=== PATIENT | male | born 1985 | race Caucasian/White ===

== ENCOUNTER 2016-10-21 22:12 | Emergency (ER) | payer OTHER ==
[2016-10-21 22:21] VITALS: TEMP 98.2
[2016-10-21] MEDS ORDERED: PANTOPRAZOLE 40 MG/10 ML VIAL IVP STA (23:18)
[2016-10-21] MEDS ORDERED: HYDROmorphone 1 MG/ML 1 ML SYRINGE IVP STA (23:18)
[2016-10-21] MEDS ORDERED: SODIUM CHLORIDE 0.9% 1,000 ML IV STA ×2 (23:18)
[2016-10-21] MEDS ORDERED: METOCLOPRAMIDE 5 MG/ML 2 ML VIAL IVP STA (23:18)
--- NOTE | 2016-10-21 23:24 | ED ---
General Adult HPI - General Chief complaint: Abdominal Pain Stated complaint: abdominal pain Time Seen by Provider: 10/21/16 23:02 Source: patient, family, RN notes reviewed Mode of arrival: ambulatory Limitations: no limitations - History of Present Illness Initial comments: Chief complaint history of present illness a 31-year-old male who reports an hour after eating a meal at a restaurant he started having loose stool. Ongoing for 3 days now. Epigastric discomfort that radiates through to the back. No vomiting but mild nausea. Reports the color of the loose stool is clear to brain colored. No blood noted. - Related Data Previous Rx's Medication Instructions Recorded Ciprofloxacin HCl [Cipro] 500 mg PO Q12HR #14 tablet 10/22/16 Allergies Allergy/AdvReac Type Severity Reaction Status Date / Time No Known Allergies Allergy Verified 10/21/16 22:59 Review of Systems ROS Statement: Those systems with pertinent positive or pertinent negative responses have been documented in the HPI. Review of systems. No visual acuity or headache no chest pain or shortness of breath. His discomfort is through the mid abdomen.. No extremity pain. No neuro deficits all systems are reviewed Past medical problems significant for testicular cancer 5 months ago he had an orchiectomy and short period radiation. He had CAT scan since then without any evidence of any metastatic lesions. The patient's surgeries include only that testicle. On the right side. Family history significant for mother with kidney cancer. Patient denies ALLERGIES nonsmoker drink alcohol heart the ground the weekends. A day or so prior to the problems starting with his stomach he did drink heavily with a friend ROS Other: All systems not noted in ROS Statement are negative. Past Medical History Past Medical History: No Reported History, Cancer Additional Past Medical History / Comment(s): Right testicular mass. History of Any Multi-Drug Resistant Organisms: None Reported Past Surgical History: No Surgical Hx Reported Additional Past Surgical History / Comment(s): testicle removed Past Anesthesia/Blood Transfusion Reactions: Motion Sickness Additional Past Anesthesia/Blood Transfusion Reaction / Comment(s): NEVER HAD ANESTHESIA. Past Psychological History: Anxiety Additional Psychological History / Comment(s): SHORT TERM ANXIETY, DAUGHTER WAS BORN PREMATURELY IN FEBRUARY 2016 (SHE IS DOING WELL AND AT HOME NOW). Smoking Status: Never smoker Past Alcohol Use History: Occasional Past Drug Use History: None Reported Additional Drug Use History / Comment(s): OCCASIONAL MARIJUANA - Past Family History Mother Additional Family Medical History / Comment(s): KIDNEY General Exam - General Exam Comments Initial Comments: General: The patient is awake and alert, complaining of diarrhea for 3 days with mid epigastric discomfort radiates through to the back. Vital signs temp 98.2 pulse 80 her story rate 20 pulse ox 90% room air blood pressure 144/90. Elevated systolic and diastolic noted most likely due to discomfort. Eye: Pupils are equal, extra-ocular movements are intact; there is normal conjunctiva bilaterally. No signs of icterus. Ears, nose, mouth and throat: There are moist mucous membranes Neck: The neck is supple, Cardiovascular: There is a regular rate and rhythm. No murmur, rub or gallop is appreciated. Respiratory: Lungs are clear to auscultation, respirations are non-labored, breath sounds are equal. No wheezes, stridor, rales, or rhonchi. Gastrointestinal: Soft, non-distended, minimally tender midepigastric. There is no rebound or guarding present. Comfort seems to radiate through to the back when he has it. No CVA tenderness. Bowel sounds are unremarkable. Back: There is no tenderness to palpation in the midline. There is no obvious deformity. Musculoskeletal: Normal ROM, no tenderness, There is no pedal edema. There is no calf tenderness or swelling. Sensation intact. Pulses equal bilaterally 2+. Neurological: No neuro deficits Limitations: no limitations Course Vital Signs 10/21/16 22:18 Temperature 98.2 F Pulse Rate 80 Respiratory 20 Rate Blood Pressure 144/90 O2 Sat by Pulse 98 Oximetry Medical Decision Making - Medical Decision Making Medical decision-making the patient's white count is 8 hemoglobin 15 hematocrit of 47. Potassium is 3.6 with a BUN of 10 and creatinine 0.9 and GFR greater than 60. Glucose 99. Amylase lipase within normal limits and is no evidence of a urinary tract infection. X-ray of the abdomen was done and reviewed by radiologist his impression is; bowel gas pattern is normal. There is no central intestinal obstruction or pneumoperitoneum. Fecal pattern is normal. There is no sign of mass. Lung bases are clear. There are no pathologic calcifications over the kidneys. Bony structures appear intact. Conclusion; no acute abdomen. As read by Dr. Marrufo The patient is going to be placed on Cipro 500 twice a day for 5 days and Pepto- Bismol. Advised to follow-up with family physician. - Lab Data Result diagrams: 10/21/16 23:30 10/21/16 23:30 Lab Results 10/21/16 10/21/16 10/22/16 Range/Units 23:30 23:30 00:13 WBC 8.4 (3.8-10.6) k/uL RBC 5.59 (4.30-5.90) m/uL Hgb 15.9 (13.0-17.5) gm/dL Hct 47.0 (39.0-53.0) % MCV 84.0 (80.0-100.0) fL MCH 28.5 (25.0-35.0) pg MCHC 33.9 (31.0-37.0) g/dL RDW 13.2 (11.5-15.5) % Plt Count 249 (150-450) k/uL Neutrophils % 81 % Lymphocytes % 6 % Monocytes % 6 % Eosinophils % 5 % Basophils % 0 % Neutrophils # 6.8 (1.3-7.7) k/uL Lymphocytes # 0.5 L (1.0-4.8) k/uL Monocytes # 0.5 (0-1.0) k/uL Eosinophils # 0.5 (0-0.7) k/uL Basophils # 0.0 (0-0.2) k/uL Sodium 141 (137-145) mmol/L Potassium 3.6 (3.5-5.1) mmol/L Chloride 102 (98-107) mmol/L Carbon Dioxide 27 (22-30) mmol/L Anion Gap 12 mmol/L BUN 10 (9-20) mg/dL Creatinine 0.90 (0.66-1.25) mg/dL Est GFR (MDRD) Af Amer >60 (>60 ml/min/1.73 sqM) Est GFR (MDRD) Non-Af >60 (>60 ml/min/1.73 sqM) Glucose 99 (74-99) mg/dL Calcium 9.4 (8.4-10.2) mg/dL Total Bilirubin 1.1 (0.2-1.3) mg/dL AST 40 (17-59) U/L ALT 46 (21-72) U/L Alkaline Phosphatase 67 (38-126) U/L Total Protein 7.8 (6.3-8.2) g/dL Albumin 4.4 (3.5-5.0) g/dL Amylase 38 (30-110) U/L Lipase 33 (23-300) U/L Urine Color Yellow Urine Appearance Clear (Clear) Urine pH 5.0 (5.0-8.0) Ur Specific [place] 1.006 (1.001-1.035) Urine Protein Negative (Negative) Urine Glucose (UA) Negative (Negative) Urine Ketones Negative (Negative) Urine Blood Negative (Negative) Urine Nitrate Negative (Negative) Urine Bilirubin Negative (Negative) Urine Urobilinogen <2.0 (<2.0) mg/dL Ur Leukocyte Esterase Negative (Negative) Disposition Clinical Impression: Diarrhea in adult patient Disposition: HOME SELF-CARE Condition: Fair Instructions: Traveler's Diarrhea (ED), Acute Diarrhea (ED) Additional Instructions: Take Cipro 1 tablet twice day for 5 days. Use Pepto-Bismol. Advance fluids in diet. Follow-up with the family physician Prescriptions: Ciprofloxacin HCl [Cipro] 500 mg PO Q12HR #14 tablet Time of Disposition: 00:54
[2016-10-21 23:56] LABS: Basophils % (A) 0 %; CH 29.2; CHCM 34.9; Eosinophils # (A) 0.5 k/uL (0-0.7); Eosinophils % (A) 5 %; HDW 2.61; HGB 15.9 gm/dL (13.0-17.5); Luc # (Auto) 0.15; Luc % (Auto) 2; Lymphocytes # (A) 0.5 k/uL (1.0-4.8); Lymphocytes % (A) 6 %; MCH 28.5 pg (25.0-35.0); MCHC 33.9 g/dL (31.0-37.0); Mean Platelet Volume 6.5; Monocytes # (A) 0.5 k/uL (0-1.0); Monocytes % (A) 6 %; Neutrophils # (A) 6.8 k/uL (1.3-7.7); Neutrophils % (A) 81 %; RBC 5.59 m/uL (4.30-5.90); RDW 13.2 % (11.5-15.5); WBC 8.4 k/uL (3.8-10.6); WBC (Perox) 8.16
[2016-10-22 00:02] LABS: ALT 46 U/L (21-72); AST 40 U/L (17-59); Alkaline Phosphatase 67 U/L (38-126); Amylase 38 U/L (30-110); Anion Gap 12 mmol/L; Blood Urea Nitrogen 10 mg/dL (9-20); Calcium 9.4 mg/dL (8.4-10.2); Carbon Dioxide 27 mmol/L (22-30); Chloride 102 mmol/L (98-107); Glucose 99 mg/dL (74-99); Non-African American GFR(MDRD) >60 (>60 ml/min/1.73 sqM); Potassium 3.6 mmol/L (3.5-5.1); Sodium 141 mmol/L (137-145); Total Bilirubin 1.1 mg/dL (0.2-1.3); Total Protein 7.8 g/dL (6.3-8.2)
--- NOTE | 2016-10-22 00:13 | XR ---
History epigastric pain. Comparison none. Technique 3 views. FINDINGS: Bowel gas pattern is normal. There is no central intestinal obstruction or pneumoperitoneum. Fecal pa ttern is normal. There is no sign of a mass. Lung bases are clear. There are no pathologic calcificat ions over the kidneys. Bony structures appear intact. CONCLUSION: No acute abdomen.
[2016-10-22 00:24] LABS: Appearance,Urine Clear (Clear); Bilirubin,Urine Negative (Negative); Glucose,Urine (UA) Negative (Negative); Ketones,Urine Negative (Negative); Leukocyte Esterase,Urine Negative (Negative); Nitrite,Urine Negative (Negative); Protein,Urine Negative (Negative); Specific Gravity,Urine 1.006 (1.001-1.035); UA Billing (MACRO vs. MICRO) CHEM; Urobilinogen,Urine <2.0 mg/dL (<2.0)
[2016-10-22] MEDS ORDERED: CIPROFLOXACIN HCL 500 MG TAB PO STA (00:52)
[2016-10-22 01:09] VITALS: BP 134/78; PULSE 74; RESP 16
== END 2016-10-22 01:09 | disposition home or self-care (01) ==
LOC: EC 22:12
DX: R19.7 Diarrhea, unspecified (principal); F12.90 Cannabis use, unspecified, uncomplicated
CPT/HCPCS: 99284; 96374; 96375 ×2; 96361; 36415; 80053; 82150; 83690; 85025; 81003; 87086; 74020; J2765; J1170; C9113